=== PATIENT | female | born 1945 | race Caucasian/White ===

== ENCOUNTER 2017-09-27 10:11 | Emergency (ER) | payer OTHER, SELFPAY ==
[2017-09-27] VITALS (11 sets, daily range): BP systolic 115–134; BP diastolic 60–71; PULSE 56–71; RESP 11–18; TEMP 36.4–36.6; O2SAT 95–100
--- NOTE | 2017-09-27 11:00 | DI.RAD.S_ITS ---
PROCEDURE: XR CHEST 1V INDICATIONS: 72 year-old female with chest pain. TECHNIQUE: One view of the chest was acquired. COMPARISON: [facility], , CHEST 2 VIEW, 11/18/2009, 11:47. FINDINGS: Surgical changes and devices: None. Lungs and pleura: No pleural effusions or pneumothorax. Lungs are clear. Mediastinum: Mediastinal contours appear normal. Heart size is normal. There is aortic atherosclerosis. Bones and chest wall: No suspicious bony lesions. Overlying soft tissues appear unremarkable. IMPRESSION: No acute cardiopulmonary disease. Dictated by: Jackson Frederick M.D. on 09/27/2017 at 11:19 Approved by: Jackson Frederick M.D. on 09/27/2017 at 11:19
--- NOTE | 2017-09-27 11:23 | DI.CT.S_ITS ---
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 TECHNIQUE: Noncontrast 4.5 mm thick angled axial sections acquired from the foramen magnum to the vertex, with coronal and sagittal reformats. For radiation dose reduction, the following was used: automated exposure control, adjustment of mA and/or kV according to patient size. COMPARISON: [facility], MR, MR BRAIN W&WO CON, 12/27/2014, 20:14. FINDINGS: Image quality: Excellent. CSF spaces: Basal cisterns are patent. No extra-axial fluid collections. The ventricles are symmetric in size and shape. Brain: No intracranial bleeds or masses. There are patchy periventricular and deep white matter chronic small vessel ischemic changes. There is intracranial internal carotid artery atherosclerosis. Skull and face: Calvarium and visualized facial bones appear intact, status post surgical resection of portions of the lateral left orbital wall. There is right paramedian occipital scalp soft tissue swelling. Sinuses: Visualized sinuses and mastoids are clear. IMPRESSION: 1. No acute intracranial abnormalities after fall. Posterior right paramedian occipital scalp soft tissue swelling. 2. Mild periventricular and deep white matter chronic small vessel ischemic change. Dictated by: Jackson Frederick M.D. on 09/27/2017 at 12:04 Approved by: Jackson Frederick M.D. on 09/27/2017 at 12:10
[2017-09-27 11:26] LABS: HEMOLYSIS < 15 (0-50)
[2017-09-27 11:28] LABS: Add Manual Diff / Slide Review NO; Basophils Percent Auto 0.7 % (0-2); Eosinophils Percent Auto 2.2 % (2-4); Hematocrit 41.5 % (36-46); Hemoglobin 14.1 g/dL (12.0-16.0); INR 1.1 (0.9-1.3); Lymphocytes Percent Auto 15.6 % (25-40); Mean Corpuscular HGB Conc 34.1 % (30-36); Mean Corpuscular Hemoglobin 30.3 PG (26-34); Mean Corpuscular Volume 88.9 fL (80-100); Monocytes Percent Auto 10.2 % (3-14); Neutrophils Absolute Auto 4200 /uL (3000-5900); Neutrophils Percent Auto 71.3 % (50-75); Platelet Count 125 X10^3/uL (150-400); Prothrombin Time 12.1 SECONDS (10.1-12.7); Red Blood Cell Count 4.67 X10^6/uL (4.0-5.2); Red Cell Distribution Width 13.5 % (11.6-14.8); White Blood Cell Count 5.8 X10^3/uL (4.5-11.0)
[2017-09-27 11:30] LABS: PTT Partial Thromboplastin Tim 28 SECONDS (26.4-36.2)
[2017-09-27 11:32] LABS: Alanine Aminotransferase 19 IU/L (9-52); Albumin 4.3 g/dL (3.5-5.0); Albumin Globulin Ratio 1.5 (1.0-2.8); Alkaline Phosphatase 56 U/L (38-126); Aspartate Aminotransferase 23 IU/L (14-36); BUN Creatinine Ratio 22.2 (6-22); Bilirubin Total 0.6 mg/dL (0.2-1.3); Calcium 9.6 mg/dL (8.4-10.2); Creatine Kinase 30 U/L (30-135); Estimated Glomerular Filt Rate > 60.0 mL/min (>60); Globulin 2.9 g/dL (1.7-4.1); Glucose 104 mg/dL (80-110); Lipase 209 U/L (23-300); Potassium 3.6 mmol/L (3.4-5.1); Sodium 141 mmol/L (137-145); Total Protein 7.2 g/dL (6.3-8.2)
[2017-09-27 11:46] LABS: Troponin I < 0.012 ng/mL (0.01-0.034)
--- NOTE | 2017-09-27 13:21 | DI.CT.S_ITS ---
PROCEDURE: CT CERVICAL SPINE WO CON INDICATIONS: fall w/ neck pain TECHNIQUE: Noncontrast 3 mm thick sections acquired from the skull base to the T4 level. Sagittal and coronal reformats were then constructed. For radiation dose reduction, the following was used: automated exposure control, adjustment of mA and/or kV according to patient size. COMPARISON: None. FINDINGS: Image quality: Excellent. Bones: No fractures or dislocations. Visualized superior ribs are intact. Multilevel endplate osteophytes are present indicating degenerative disease. Mild grade 1 anterolisthesis of C2 on C3 and C3 and C4. Mild grade 1 retrolisthesis of C4 on C5. Soft tissues: Prevertebral soft tissues are normal in thickness. No paravertebral hematomas. No apical pneumothoraces. IMPRESSION: 1. No fracture. 2. Multilevel degenerative disc and facet disease, with multilevel presumably degenerative spondylolistheses. Dictated by: Hermes Mccarthy M.D. on 09/27/2017 at 13:43 Approved by: Hermes Mccarthy M.D. on 09/27/2017 at 13:45
--- NOTE | 2017-09-27 14:57 | ED.SYNCOPE ---
HPI - Syncope General Chief Complaint: Syncope Stated Complaint: cut on back of head History of Present Illness HPI narrative: HPI 72-year-old female presents for evaluation of injuries after a syncopal event while the patient was in her kitchen. Patient reports that she suddenly felt weak, had no accompany chest pain, shortness breath, abdominal pain, she then fell to the floor striking the back of her head on the counter. Patient remembers falling striking her head, she had a brief LOC and immediately regained consciousness without incontinence or confusion. The patient reports that she has had to similar prior episodes over the last year. Both episodes were sudden, resulting in rapidly progressive loss of consciousness, generalized weakness, a fall with ongoing but meaning memory as she fell, and a near immediate return of consciousness. On her of and she had accompanied incontinence of urine and stool. This event was in the shower. The patient reports that she has had a unremarkable Echo, and has worn a Holter for 24 hours without event. Patient has a primary care physician. * Denies chest pain, shortness of breath, double vision, neck pain, vertigo, headache, arm pain, arm paresthesias, arm numbness, or focal weakness or sensory at change now or the time of their event *Denies recent chiropractic manipulation of their neck, neck trauma or strains *Denies a history of seizures. No incontinence today, denies post-syncope confusion M/S/F/SocHx notable for:please see HP; remainder reviewed with patient and in chart. ROS: Negative constitutional, eye, cardiovascular, pulmonary, GI, , MSK, skin, neurologic, psychiatric, endocrine unless noted in the HPI. Exam Gen:Pleasant, non-toxic appearing, resting comfortably HEENT: right posterior occipital 1 cm area of abrasion, otherwise NC, AT, PEERL, EOMI. Resp:Clear to auscultation bilaterally with a normal work of breathing and no accessory muscle usage Card:Regular rate and rhythm with no murmurs rubs or gallops, extremities are warm and well perfused, no JVD GI:Nontender to palpation throughout all quadrants, nondistende : Deferred MSK: No visible deformities, strength and tone WNL. C-spine with mild tenderness palpation, T and L spine without tears palpation, remainder of appendicular skeleton with full functional range of motion, no visual abnormalities appreciate, nontender to palpation, chest wall without tenderness to palpation, abdomen nontender to palpation. Skin: Normal color with no visible lesions. Neuro: Gen AO x 3, no facial asymmetry, no gaze preference, no slurring of speech. Pupils equal and reactive, EOMI, no facial asymmetry, no nystagmus, phonation intact, SCM 5/5 bilaterally. Cerebellar: bilateral upper extremities without dysmetria. Psych: Mood and affect appropriate. Labs / Imaging (pertinent): CT C-spine: no acute traumatic abnormalities. CT head: no acute endocrine abnormalities. CXR:No acute cardiopulmonary disease proces. EKG: SR at 58 BPM . LAFB with RBBB. OH interval 164 msec, QTc 438 msec, no delta waves, epsilon waves, coved or saddle ST-segment changes in leads V1-3, preseptal or inferior lead Q-waves, biphasic P-waves, or T-wave inversions; no LVH. MDM Previous chart, nursing note, and vitals reviewed. A: 72-year-old female presents for evaluation of injuries after a syncopal event while the patient was in her kitchen. Patient reports that she suddenly felt weak, had no accompany chest pain, shortness breath, abdominal pain, she then fell to the floor striking the back of her head on the counter. DDx and evaluation: * trauma - no clinically significant traumatic abnormalities appreciated history or exam. * Anemia -Hemoglobin clinically within normal limits * CARDIAC - suspect cardiac based upon the patient's history. The possibility of intermittent arrhythmia seems most likely. Hospitalization versus outpatient workup was discussed with the patient. As the patient has very infrequent episodes, previously had a Holter, in no significant abnormality is noted on cardiac monitoring line ED, had a reportedly recent and unremarkable Echo, and as is her preference, she is appropriate for further outpatient workup. Her right bundle branch block with a left anterior fascicular block raises the possibility that she has an intermittent complete heart block. Discussed concerns with the bottle capper on-call for the patient, she will be scheduled for 30 day event monitor. * Obstructive -Doubt PE, tamponade, or pulmonary hypertension based upon lack of shortness of breath, chest pain, or historical risk factors on history and the absence of hypoxemia, tachycardia, hypotension, or JVD on exam * Vascular -As there are no identifiable risk factors on history (injury risk factors, vertiginous symptoms, diplopia, vision changes, TIA risk factors or prior similar events) further evaluation of a possible vertebrobasilar insufficiency. Furthermore, as the patient denies neck pain, recent neck trauma, and there is no evidence of a partial Molly's syndrome, a carotid or vertebral dissection is felt to be unlikely and imaging is not indicated. Similarly, the absence of focal arm symptoms and symmetric perfusion of the upper extremities effectively excludes emergent evaluation of any possible subclavian steal syndrome. Lastly, given the absence of chest pain aortic dissection further evaluation of any possible dissection is not warranted * Electrolyte -Electrolytes clinically within normal limit. * Hypotension (hypovolemia vs vasovagal vs autonomic instability) -SBP clinically within normal limits, no symptomatic changes with orthostatic maneuvers * GARMENT LOOPER (CVA/TIA/Mass) - given the absence of headache, absence of reported transient symptoms c/w a TIA and the absence of a focal neurological deficit, further evaluation, including imaging is not currently warranted. * Seizure - given the absence of reported seizure history and a presentation today atypical for a seizure strongly doubt that this was the cause of the patient's event * AAA - patient without any abdominal, groin, back or flank pain on history or exam, as such no further evaluation of this possible etiology is currently indicated Impression: syncope. (please reference below for remainder of encounter information) Related Data Home Medications Medication Instructions Recorded Confirmed Benadryl Allergy 1 tab PO PRN PRN 09/27/17 09/27/17 Caltrate 600 + D 1 tab PO QDAY 09/27/17 09/27/17 Probiotic 1 cap PO QDAY 09/27/17 09/27/[address] [place]'s wort 1 tab PO QDAY 09/27/17 09/27/17 Vitamin B-12 1 tab PO QDAY 09/27/17 09/27/17 Vitamin C 1 tab PO QPM 09/27/17 09/27/17 alprazolam 0.25 mg PO PRN PRN 09/27/17 09/27/17 tljolaay-ywvuzarh-dpp citrate 1 tab PO PRN PRN 09/27/17 09/27/17 [Nauzene] estradiol 0.5 mg PO MOWEFR 09/27/17 09/27/17 simvastatin [Zocor] 10 mg PO QHS 09/27/17 09/27/17 Previous Rx's Medication Instructions Recorded hydrochlorothiazide 25 mg PO QDAY #30 tab 04/26/17 Allergies Allergy/AdvReac Type Severity Reaction Status Date / Time cephalexin Allergy Intermediate HIVES Unverified 08/30/17 12:06 Sulfa (Sulfonamide Allergy Intermediate HIVES Unverified 08/30/17 12:06 Antibiotics) [SULFA (SULFONAMIDE ANTIBIOTICS)] PFSH Surgical History History of tonsillectomy Status post hysterectomy Family History Father Mental health problem MDM - Syncope Lab Data Result diagrams: 09/27/17 11:15 09/27/17 11:15 Lab Results 09/27/17 09/27/17 09/27/17 Range/Units 11:15 11:15 11:15 WBC 5.8 (4.5-11.0) X10^3/uL RBC 4.67 (4.0-5.2) X10^6/uL Hgb 14.1 (12.0-16.0) g/dL Hct 41.5 (36-46) % MCV 88.9 (80-100) fL MCH 30.3 (26-34) PG MCHC 34.1 (30-36) % RDW 13.5 (11.6-14.8) % Plt Count 125 L (150-400) X10^3/uL Neut % (Auto) 71.3 (50-75) % Lymph % (Auto) 15.6 L (25-40) % [place] % (Auto) 10.2 (3-14) % Eos % (Auto) 2.2 (2-4) % Baso % (Auto) 0.7 (0-2) % Neut # (Auto) 4200 (2033-0179) /uL PT 12.1 (10.1-12.7) SECONDS INR 1.1 (0.9-1.3) APTT 28 (26.4-36.2) SECONDS Sodium 141 (137-145) mmol/L Potassium 3.6 (3.4-5.1) mmol/L Chloride 100.0 (98-107) mmol/L Carbon Dioxide 27.0 (22-32) mmol/L BUN 20.0 H (7-17) mg/dL Creatinine 0.90 (0.52-1.04) mg/dL Estimated GFR > 60.0 (>60) mL/min BUN/Creatinine Ratio 22.2 H (6-22) Glucose 104 (80-110) mg/dL Calcium 9.6 (8.4-10.2) mg/dL Total Bilirubin 0.6 (0.2-1.3) mg/dL AST 23 (14-36) IU/L ALT 19 (9-52) IU/L Alkaline Phosphatase 56 (38-126) U/L Total Creatine Kinase 30 (30-135) U/L Troponin I < 0.012 (0.01-0.034) ng/mL Total Protein 7.2 (6.3-8.2) g/dL Albumin 4.3 (3.5-5.0) g/dL Globulin 2.9 (1.7-4.1) g/dL Albumin/Globulin Ratio 1.5 (1.0-2.8) Lipase 209 (23-300) U/L Discharge Plan Departure Prescriptions: No Action hydrochlorothiazide 25 MG tablet 25 mg PO QDAY Qty: 30 RF: 2 weghksdu-azpwlofr-kqx citrate [Nauzene] [id number] mg Tablet,Chewable 1 tab PO PRN PRN (Reason: Nausea) RF: 0 Caltrate 600 + D 1 tab PO QDAY RF: 0 Probiotic capsule 1 cap PO QDAY RF: [address] [place]'s wort tablet 1 tab PO QDAY RF: 0 Benadryl Allergy 1 tab PO PRN PRN (Reason: Allergy Symptoms) RF: 0 Vitamin B-12 1 tab PO QDAY RF: 0 Vitamin C 1 tab PO QPM RF: 0 simvastatin [Zocor] 10 MG tablet 10 mg PO QHS RF: 0 alprazolam 0.5 MG tablet 0.25 mg PO PRN PRN (Reason: claustrophobia/flying) RF: 0 estradiol 0.5 MG tablet 0.5 mg PO MOWEFR RF: 0
== END 2017-09-27 15:40 | disposition home or self-care (01) ==
PROVIDERS: Emergency Provider Emergency Medicine; PCP Family Medicine
DX: R55 Syncope and collapse (principal)
CPT/HCPCS: 36591; 70450; 71045; 72125; 80053; 82550; 82553; 83690; 84484; 85025; 85610; 85730; 93005; 99285

== ENCOUNTER → 2017-11-15 11:48 | Outpatient (CLI) | payer OTHER, SELFPAY ==
--- NOTE | 2017-11-15 | DI.MRI.S_ITS ---
PROCEDURE: MR LUMBAR SPINE WO CON INDICATIONS: LOW BACK PAIN TECHNIQUE: Noncontrast sagittal T1 spin echo and T2 fast echo, sagittal STIR, axial T1 and T2 fast spin echo through the lumbar spine. In cases with scoliosis, additional coronal T2 fast spin echo may be performed. COMPARISON: None. FINDINGS: Image quality: Excellent. Alignment and Curvature: Grade 1 retrolisthesis of L2 on L3. Bone Marrow: Marrow is of normal overall signal. No acute vertebral body compression fractures. Spinal Cord: Conus medullaris terminates at the L1-L2 level. Visualized cord demonstrates normal signal and size. Paraspinous Soft Tissues: No paravertebral masses. Dependent subcutaneous edema from the level of L2-sacrum. L1-L2: Mild broad-based posterior disc bulge and bilateral facet disease. Mild canal narrowing. No foraminal stenosis. L2-L3: Posterior annular fissure and broad-based posterior disc bulge or bilateral facet arthropathy. Mild canal narrowing. No left foraminal stenosis. Mild right foraminal narrowing. L3-L4: Broad-based posterior disc bulge and bilateral facet arthropathy with moderate canal narrowing. There is also dorsal epidural lipomatosis which contributes. Mild bilateral foraminal narrowing. L4-L5: Broad-based posterior disc bulge and bilateral facet arthropathy. Mild canal narrowing. Severe left foraminal stenosis. Mild right foraminal narrowing L5-S1: Broad-based posterior disc bulge and bilateral facet arthropathy. Mild canal narrowing. Mild left and severe right foraminal stenosis. IMPRESSION: Moderate L3-L4 canal stenosis in part due to dorsal epidural lipomatosis. Severe left L4-L5 foraminal narrowing. Severe right L5-S1 foraminal stenosis. Grade 1 retrolisthesis of L2 on L3. Dictated by: Stone Cisneros M.D. on 11/15/2017 at 14:31 Approved by: Stone Cisneros M.D. on 11/15/2017 at 14:51
== END ==
PROVIDERS: PCP Family Medicine; Visit Provider Nurse Practitioner Family
DX: M54.5 Low back pain (principal); M48.061 Spinal stenosis, lumbar region without neurogenic claudication
CPT/HCPCS: 72148

== ENCOUNTER → 2018-02-15 12:27 | Outpatient (CLI) | payer OTHER, SELFPAY | PROVIDERS: PCP Family Medicine; Visit Provider Physician Assistant | DX: N30.91 Cystitis, unspecified with hematuria (principal) | CPT/HCPCS: 87077; 87086; 87186 ==

== ENCOUNTER → 2018-08-02 14:55 | Outpatient (CLI) | payer OTHER, SELFPAY ==
--- NOTE | 2018-08-02 | DI.MG.S_ITS ---
BILATERAL DIGITAL SCREENING MAMMOGRAM 3D/2D WITH CAD: 08/02/2018 CLINICAL: Routine screening. Comparison is made to exams dated: 09/15/2015 mammogram, 05/24/2013 mammogram, and 11/18/2011 mammogram - [facility]. The tissue of both breasts is heterogeneously dense. This may lower the sensitivity of mammography. Current study was also evaluated with a Computer Aided Detection (CAD) system. There are benign calcifications in both breasts. No significant masses, calcifications, or other findings are seen in either breast. There has been no significant interval change. IMPRESSION: There is no mammographic evidence of malignancy. A 1 year screening mammogram is recommended. This exam was interpreted at Station ID: [id number]. NOTE: For mammograms, a report in lay terms will be sent to the patient. Approximately 15% of breast malignancies will not be visualized mammographically. In the management of a palpable breast mass, a negative mammogram must not discourage biopsy of a clinically suspicious lesion. Electronically Signed By: Dada mehta/marcus:08/02/2018 16:48:25 letter sent: Normal Exam ACR BI-RADS Category 2: Benign Finding(s) [id number]
== END ==
PROVIDERS: PCP Family Medicine; Visit Provider Family Medicine
DX: Z12.31 Encounter for screening mammogram for malignant neoplasm of breast (principal)
CPT/HCPCS: 77063; 77067

== ENCOUNTER 2018-09-21 15:29 | Emergency (ER) | payer OTHER, SELFPAY ==
[2018-09-21 16:09] VITALS: BP 135/80; PULSE 60; RESP 20; TEMP 36.8; O2SAT 100; BMI 31.8
--- NOTE | 2018-09-21 16:24 | DI.RAD.S_ITS ---
PROCEDURE: XR KNEE RT 3V INDICATIONS: fall on right knee TECHNIQUE: 3 views of the knee were acquired. COMPARISON: None. FINDINGS: Bones: No fractures or dislocations. No suspicious bony lesions. Soft tissues: Moderate knee joint effusion. No suspicious soft tissue calcifications. IMPRESSION: 1. No joint effusion. 2. No acute fracture. No osseous lesion. If symptoms and/or clinical suspicion for pathology persist, further assessment with repeat, or advanced imaging (e.g., CT, MRI, or bone scan) may be helpful for further assessment. Dictated by: Hermes Mccarthy M.D. on 09/21/2018 at 16:45 Approved by: Hermes Mccarthy M.D. on 09/21/2018 at 16:46
[2018-09-21 18:25] VITALS: BP 150/68; PULSE 60; RESP 16; O2SAT 99
--- NOTE | 2018-09-21 18:28 | PC.NURSE ---
Pt reports having had pain in right knee previously. Had a steroid injection in knee about 6 months ago and reports had pain relief until yesterday. Was moving into new home yesterday when pain started. Increased in intensity through out the evening and into today. Took a dose of oxycodone and reports relief with medication.
[2018-09-21 19:35] VITALS: BP 144/67; PULSE 61; RESP 16; O2SAT 97
--- NOTE | 2018-09-21 19:53 | ED.EXTPRO ---
HPI - Extremity Problem <Kelsi Marques, [employer]-[facility] - Last Filed: 09/21/18 20:00> General Chief complaint: Extremity Problem,Nontraumatic Stated complaint: RIGHT KNEE HURTS BAD Time Seen by Provider: 09/21/18 18:38 Source: patient and family Mode of arrival: ambulatory Limitations: no limitations History of Present Illness HPI Narrative: The patient is a 73-year-old female nonsmoker who presents with chief complaint of knee pain. she states she has a history of right knee pain, which was treated with a steroid injection 6 months ago. She went to Dr Albright's office earlier today, hoping that she could get another steroid injection today for her knee pain. However she could not as the office was closed so she came to the emergency department. She states she has been ambulating more than usual. She denies any fall or injury to her right knee. She has been taking her 's oxycodone for her knee pain. she presents requesting a steroid injection and states that she took oxycodone in order to make a steroid injection easier. She denies any numbness or tingling. She thought she had some bruising, but states that is gone. Related Data Home Medications Medication Instructions Recorded Confirmed Benadryl Allergy 1 tab PO PRN PRN 09/27/17 02/20/18 Caltrate 600 + D 1 tab PO QDAY 09/27/17 02/20/18 Probiotic 1 cap PO QDAY 09/27/17 02/20/18 [place]'s wort 1 tab PO QDAY 09/27/17 02/20/18 Vitamin B-12 1 tab PO QDAY 09/27/17 02/20/18 Vitamin C 1 tab PO QPM 09/27/17 02/20/18 jrcvkslc-jntnonic-qqe citrate 1 tab PO PRN PRN 09/27/17 02/20/18 [Nauzene] ibuprofen 200 mg capsule 200 mg PO ONCE PRN cap 11/03/17 02/20/18 ibuprofen 200 mg-diphenhydramine 1 cap PO BEDTIME PRN 11/03/17 02/20/18 HCl 25 mg capsule Previous Rx's Medication Instructions Recorded estradiol 0.5 mg tablet 0.5 mg PO MOWEFR #30 tab 03/23/18 irbesartan 150 mg tablet 150 mg PO .QHS #90 tab 04/24/18 alprazolam 0.5 mg tablet 0.25 mg PO PRN PRN #5 tab 06/28/18 simvastatin 10 mg tablet 10 mg PO QHS #30 tab 06/28/18 diclofenac sodium [Voltaren] 2 gram TOP QID PRN #100 gram 09/21/18 lidocaine 1 patch TOP DAILY #15 each 09/21/18 Allergies Allergy/AdvReac Type Severity Reaction Status Date / Time cephalexin Allergy Intermediate HIVES Verified 09/21/18 16:23 Sulfa (Sulfonamide Allergy Intermediate HIVES Verified 09/21/18 16:23 Antibiotics) [SULFA (SULFONAMIDE ANTIBIOTICS)] Review of Systems <KYLE Thompson - Last Filed: 09/21/18 20:00> Review of Systems GENERAL: Denies chills, fatigue, malaise, fever, sweats. HEENT: Denies sinus pain, ear pain, sore throat, difficulty swallowing, dizziness. RESPIRATORY: Denies dyspnea, cough, wheezing, hemoptysis, sputum. CARDIOVASCULAR: Denies chest pain, palpitations, orthopnea, edema, GASTROINTESTINAL: Denies nausea, vomiting, abdominal pain, diarrhea, constipation, melena. : Denies dysuria, frequency, incontinence, hematuria, urinary retention. MUSCULOSKELETAL: See HPI SKIN: See HPI NEUROLOGIC: Denies weakness, headache, numbness, change in speech, confusion, seizures, incoordination. PSYCHIATRIC: No concerning psychosocial issues. 12 point review of systems is negative except for those stated above PFSH <KYLE Thompson - Last Filed: 09/21/18 20:00> Medical History Lumbar spinal stenosis (Chronic) Anxiety (Chronic) Asthma (Chronic) Depression (Chronic) Eczema (Chronic) Frequent UTI (Chronic) Hayfever (Chronic) Lymphoma, head, face, or neck (Chronic 2013) Osteoporosis (Chronic) PTSD (post-traumatic stress disorder) (Chronic) Urinary incontinence (Chronic) Vertigo (Chronic) Chicken pox (Resolved) Surgical History S/P placement of cardiac pacemaker (Resolved) Anesthesia complication (Resolved) History of surgery of head (Resolved 2013) History of tonsillectomy (Resolved) Status post hysterectomy (Resolved 1990) Family History Father Mental health problem Mother Stroke Social History marital status: Smoking Status: Never smoker Family History Father Mental health problem Mother Stroke Social History marital status: Smoking Status: Never smoker Exam <KYLE Thompson - Last Filed: 09/21/18 20:00> Narrative Exam Narrative: GENERAL: Elderly female sitting on stretcher eating soup with daughter at bedside HEAD: Atraumatic. Normocephalic. No temporal or scalp tenderness. NECK: Trachea midline. No JVD or lymphadenopathy. Supple, nontender, no meningeal signs. CARDIOVASCULAR: Regular rate and rhythm RESPIRATORY: No cough. No increased respiratory effort. No accessory muscle use. EXTREMITIES: Generalized pain to palpation right knee. Negative varus valgus Heidi anterior drawer or posterior drawer. Patient is able to flex and extend right knee. Positive pedal pulse right foot BACK: Nontender without deformity or crepitance. No flank tenderness. NEURO: AOx3. SKIN: No erythema ecchymosis laceration or abrasion noted right knee. Initial Vital Signs Initial Vital Signs: Vital Signs Temperature 98.2 F 09/21/18 16:09 Pulse Rate 60 09/21/18 16:09 Respiratory Rate 20 09/21/18 16:09 Blood Pressure 135/80 09/21/18 16:09 Pulse Oximetry 100 09/21/18 16:09 <Dov Larson DO - Last Filed: 09/22/18 00:55> Initial Vital Signs Initial Vital Signs: Vital Signs Temperature 98.2 F 09/21/18 16:09 Pulse Rate 60 09/21/18 16:09 Respiratory Rate 20 09/21/18 16:09 Blood Pressure 135/80 09/21/18 16:09 Pulse Oximetry 100 09/21/18 16:09 Course <KYLE Thompson - Last Filed: 09/21/18 20:00> Orders Ordered: ED Orders 09/21/18 16:24 XR knee RT 3V Stat Vital Signs - 8 hr 09/21/18 18:25 09/21/18 19:35 Pulse Rate 60 61 Respiratory Rate 16 16 Blood Pressure [Left Arm] 150/68 H 144/67 H Pulse Oximetry 99 97 <Dov Larson DO - Last Filed: 09/22/18 00:55> Orders Ordered: ED Orders 09/21/18 16:24 XR knee RT 3V Stat Vital Signs - 8 hr 09/21/18 18:25 09/21/18 19:35 Pulse Rate 60 61 Respiratory Rate 16 16 Blood Pressure [Left Arm] 150/68 H 144/67 H Pulse Oximetry 99 97 MDM - Extremity (Nontraumatic) <KYLE Thompson - Last Filed: 09/21/18 20:00> Imaging Data Knee x-ray: Radiologist's impression: [address] [address] XRay Report Signed Patient: Joie Orourke LMR#: [id number] : 5Acct:[id number] Age/Sex: 73 / FDate of Service: 09/21/18 Loc: ED Accession Number: [id number] Procedure: XR knee RT 3V Ordering Provider: Kelsi Marques PROCEDURE: XR KNEE RT 3V INDICATIONS: fall on right knee TECHNIQUE: 3 views of the knee were acquired. COMPARISON: None. FINDINGS: Bones: No fractures or dislocations. No suspicious bony lesions. Soft tissues: Moderate knee joint effusion. No suspicious soft tissue calcifications. IMPRESSION: 1. No joint effusion. 2. No acute fracture. No osseous lesion. If symptoms and/or clinical suspicion for pathology persist, further assessment with repeat, or advanced imaging (e.g., CT, MRI, or bone scan) may be helpful for further assessment. Dictated by: Hermes Mccarthy M.D. on 09/21/2018 at 16:45 Approved by: Hermes Mccarthy M.D. on 09/21/2018 at 16:46 [facility] Narrative Medical decision making narrative: The patient is a 73-year-old female with history of knee pain who presents requesting a steroid injection for her knee. Her x-ray shows no fracture. I discussed at length that she has a follow-up with her primary care provider as we will not do a steroid injection in the emergency department for her knee pain. she has no acute findings on exam, is afebrile and hemodynamically stable. I did give her prescription of lidocaine patch as well as Voltaren topical. I discussed at length come back to emergency department for acute concerns but otherwise following up with her primary care provider regarding her knee pain. Discharge Plan Departure Patient Disposition: Home Clinical Impression: Acute knee pain Qualifiers: Laterality: right Qualified Code(s): M25.561 - Pain in right knee Clinical Impression: (Ruled Out): Cerebrovascular disease Discharge Date/Time: 09/21/18 19:40 Interventions: ED Discharge Assessment Last Done: 09/21/18 19:39 Instructions: How To Perform RICE (Rest, Ice, Compress, Elevate), DI for Knee Pain Activity Restrictions/Additional Instructions: Her x-ray shows no acute fractures today. Please use rest ice compression elevation as well as ucqk-wqy-bznfrrx pain medications as needed and able. I gave you prescriptions for lidocaine patches as well as topical gel. Please follow up with primary care doctor as we discussed. Please come back to emergency department for any acute concerns such as chest pain or shortness of breath. Prescriptions: New lidocaine 5 % adhesive patch,medicated 1 patch TOP DAILY Qty: 15 RF: 0 diclofenac sodium [Voltaren] 1 % gel 2 gram TOP QID PRN (Reason: pain) Qty: 100 RF: 0 No Action estradiol 0.5 mg tablet 0.5 mg PO MOWEFR Qty: 30 RF: 6 simvastatin [Zocor] 10 mg tablet 10 mg PO QHS Qty: 30 RF: 3 alprazolam 0.5 mg tablet 0.25 mg PO PRN PRN (Reason: claustrophobia/flying) Qty: 5 RF: 0 ibuprofen [Advil Liqui-Gel] 200 mg capsule 200 mg PO ONCE PRNRF: 0 ibuprofen-diphenhydramine HCl [Advil PM Liqui-Gels] 200-25 mg capsule 1 cap PO BEDTIME PRNRF: 0 irbesartan 150 mg tablet 150 mg PO .QHS Qty: 90 RF: 0 ifoqmjmr-sxcqsrhu-wfv citrate [Nauzene] 968-175-230 mg Tablet,Chewable 1 tab PO PRN PRN (Reason: Nausea) RF: 0 Caltrate 600 + D 1 tab PO QDAY RF: 0 Probiotic capsule 1 cap PO QDAY RF: 0 [place]'s wort tablet 1 tab PO QDAY RF: 0 Benadryl Allergy 1 tab PO PRN PRN (Reason: Allergy Symptoms) RF: 0 Vitamin B-12 1 tab PO QDAY RF: 0 Vitamin C 1 tab PO QPM RF: 0 Referrals: Angelina Szymanski DO [Primary Care Provider] - <Dov Larson DO - Last Filed: 09/22/18 00:55> Cosign ED Attending Raisaature Attestation: I was immediately available in the department for consultation. Documentation has been reviewed. I agree with assessment and plan.
--- NOTE | 2018-09-21 20:00 | ED_ITS ---
HPI - Extremity Problem <Kelsi Marques, RN [facility] - Last Filed: 09/21/18 20:00> General Chief complaint: Extremity Problem,Nontraumatic Stated complaint: RIGHT KNEE HURTS BAD Time Seen by Provider: 09/21/18 18:38 Source: patient and family Mode of arrival: ambulatory Limitations: no limitations History of Present Illness HPI Narrative: The patient is a 73-year-old female nonsmoker who presents with chief complaint of knee pain. she states she has a history of right knee pain, which was treated with a steroid injection 6 months ago. She went to Dr Albright's office earlier today, hoping that she could get another steroid injection today for her knee pain. However she could not as the office was closed so she came to the emergency department. She states she has been ambulating more than usual. She denies any fall or injury to her right knee. She has been taking her 's oxycodone for her knee pain. she presents requesting a steroid injection and states that she took oxycodone in order to make a steroid injection easier. She denies any numbness or tingling. She thought she had some bruising, but states that is gone. Related Data Home Medications Medication Instructions Recorded Confirmed Benadryl Allergy 1 tab PO PRN PRN 09/27/17 02/20/18 Caltrate 600 + D 1 tab PO QDAY 09/27/17 02/20/18 Probiotic 1 cap PO QDAY 09/27/17 02/20/18 Chen[place]'s wort 1 tab PO QDAY 09/27/17 02/20/18 Vitamin B-12 1 tab PO QDAY 09/27/17 02/20/18 Vitamin C 1 tab PO QPM 09/27/17 02/20/18 gltwtbus-bflxhfmz-ght citrate 1 tab PO PRN PRN 09/27/17 02/20/18 [Nauzene] ibuprofen 200 mg capsule 200 mg PO ONCE PRN cap 11/03/17 02/20/18 ibuprofen 200 mg-diphenhydramine 1 cap PO BEDTIME PRN 11/03/17 02/20/18 HCl 25 mg capsule Previous Rx's Medication Instructions Recorded estradiol 0.5 mg tablet 0.5 mg PO MOWEFR #30 tab 03/23/18 irbesartan 150 mg tablet 150 mg PO .QHS #90 tab 04/24/18 alprazolam 0.5 mg tablet 0.25 mg PO PRN PRN #5 tab 06/28/18 simvastatin 10 mg tablet 10 mg PO QHS #30 tab 06/28/18 diclofenac sodium [Voltaren] 2 gram TOP QID PRN #100 gram 09/21/18 lidocaine 1 patch TOP DAILY #15 each 09/21/18 Allergies Allergy/AdvReac Type Severity Reaction Status Date / Time cephalexin Allergy Intermediate HIVES Verified 09/21/18 16:23 Sulfa (Sulfonamide Allergy Intermediate HIVES Verified 09/21/18 16:23 Antibiotics) [SULFA (SULFONAMIDE ANTIBIOTICS)] Review of Systems <KYLE Thompson - Last Filed: 09/21/18 20:00> Review of Systems GENERAL: Denies chills, fatigue, malaise, fever, sweats. HEENT: Denies sinus pain, ear pain, sore throat, difficulty swallowing, dizziness. RESPIRATORY: Denies dyspnea, cough, wheezing, hemoptysis, sputum. CARDIOVASCULAR: Denies chest pain, palpitations, orthopnea, edema, GASTROINTESTINAL: Denies nausea, vomiting, abdominal pain, diarrhea, constipation, melena. : Denies dysuria, frequency, incontinence, hematuria, urinary retention. MUSCULOSKELETAL: See HPI SKIN: See HPI NEUROLOGIC: Denies weakness, headache, numbness, change in speech, confusion, seizures, incoordination. PSYCHIATRIC: No concerning psychosocial issues. 12 point review of systems is negative except for those stated above PFSH <KYLE Thompson - Last Filed: 09/21/18 20:00> Medical History Lumbar spinal stenosis (Chronic) Anxiety (Chronic) Asthma (Chronic) Depression (Chronic) Eczema (Chronic) Frequent UTI (Chronic) Hayfever (Chronic) Lymphoma, head, face, or neck (Chronic 2013) Osteoporosis (Chronic) PTSD (post-traumatic stress disorder) (Chronic) Urinary incontinence (Chronic) Vertigo (Chronic) Chicken pox (Resolved) Surgical History S/P placement of cardiac pacemaker (Resolved) Anesthesia complication (Resolved) History of surgery of head (Resolved 2013) History of tonsillectomy (Resolved) Status post hysterectomy (Resolved 1990) Family History Father Mental health problem Mother Stroke Social History marital status: Smoking Status: Never smoker Family History Father Mental health problem Mother Stroke Social History marital status: Smoking Status: Never smoker Exam <KYLE Thompson - Last Filed: 09/21/18 20:00> Narrative Exam Narrative: GENERAL: Elderly female sitting on stretcher eating soup with daughter at bedside HEAD: Atraumatic. Normocephalic. No temporal or scalp tenderness. NECK: Trachea midline. No JVD or lymphadenopathy. Supple, nontender, no meningeal signs. CARDIOVASCULAR: Regular rate and rhythm RESPIRATORY: No cough. No increased respiratory effort. No accessory muscle use. EXTREMITIES: Generalized pain to palpation right knee. Negative varus valgus Heidi anterior drawer or posterior drawer. Patient is able to flex and extend right knee. Positive pedal pulse right foot BACK: Nontender without deformity or crepitance. No flank tenderness. NEURO: AOx3. SKIN: No erythema ecchymosis laceration or abrasion noted right knee. Initial Vital Signs Initial Vital Signs: Vital Signs Temperature 98.2 F 09/21/18 16:09 Pulse Rate 60 09/21/18 16:09 Respiratory Rate 20 09/21/18 16:09 Blood Pressure 135/80 09/21/18 16:09 Pulse Oximetry 100 09/21/18 16:09 <Dov Larson DO - Last Filed: 09/22/18 00:55> Initial Vital Signs Initial Vital Signs: Vital Signs Temperature 98.2 F 09/21/18 16:09 Pulse Rate 60 09/21/18 16:09 Respiratory Rate 20 09/21/18 16:09 Blood Pressure 135/80 09/21/18 16:09 Pulse Oximetry 100 09/21/18 16:09 Course <KYLE Thompson - Last Filed: 09/21/18 20:00> Orders Ordered: ED Orders 09/21/18 16:24 XR knee RT 3V Stat Vital Signs - 8 hr 09/21/18 18:25 09/21/18 19:35 Pulse Rate 60 61 Respiratory Rate 16 16 Blood Pressure [Left Arm] 150/68 H 144/67 H Pulse Oximetry 99 97 <Dov Larson DO - Last Filed: 09/22/18 00:55> Orders Ordered: ED Orders 09/21/18 16:24 XR knee RT 3V Stat Vital Signs - 8 hr 09/21/18 18:25 09/21/18 19:35 Pulse Rate 60 61 Respiratory Rate 16 16 Blood Pressure [Left Arm] 150/68 H 144/67 H Pulse Oximetry 99 97 MDM - Extremity (Nontraumatic) <KYLE Thompson - Last Filed: 09/21/18 20:00> Imaging Data Knee x-ray: Radiologist's impression: [address] [address] XRay Report Signed Patient: Joie Orourke LMR#: [id number] : 5Acct:[id number] Age/Sex: 73 / FDate of Service: 09/21/18 Loc: ED Accession Number: [id number] Procedure: XR knee RT 3V Ordering Provider: Kelsi Marques PROCEDURE: XR KNEE RT 3V INDICATIONS: fall on right knee TECHNIQUE: 3 views of the knee were acquired. COMPARISON: None. FINDINGS: Bones: No fractures or dislocations. No suspicious bony lesions. Soft tissues: Moderate knee joint effusion. No suspicious soft tissue calcifications. IMPRESSION: 1. No joint effusion. 2. No acute fracture. No osseous lesion. If symptoms and/or clinical suspicion for pathology persist, further assessment with repeat, or advanced imaging (e.g., CT, MRI, or bone scan) may be helpful for further assessment. Dictated by: Hermes Mccarthy M.D. on 09/21/2018 at 16:45 Approved by: Hermes Mccarthy M.D. on 09/21/2018 at 16:46 [facility] Narrative Medical decision making narrative: The patient is a 73-year-old female with history of knee pain who presents requesting a steroid injection for her knee. Her x-ray shows no fracture. I discussed at length that she has a follow-up with her primary care provider as we will not do a steroid injection in the emergency department for her knee pain. she has no acute findings on exam, is afebrile and hemodynamically stable. I did give her prescription of lidocaine patch as well as Voltaren topical. I discussed at length come back to emergency department for acute concerns but otherwise following up with her primary care provider regarding her knee pain. Discharge Plan Departure Patient Disposition: Home Clinical Impression: Acute knee pain Qualifiers: Laterality: right Qualified Code(s): M25.561 - Pain in right knee Clinical Impression: (Ruled Out): Cerebrovascular disease Discharge Date/Time: 09/21/18 19:40 Interventions: ED Discharge Assessment Last Done: 09/21/18 19:39 Instructions: How To Perform RICE (Rest, Ice, Compress, Elevate), DI for Knee Pain Activity Restrictions/Additional Instructions: Her x-ray shows no acute fractures today. Please use rest ice compression elevation as well as bnsu-zdv-jgswaid pain medications as needed and able. I gave you prescriptions for lidocaine patches as well as topical gel. Please follow up with primary care doctor as we discussed. Please come back to emergency department for any acute concerns such as chest pain or shortness of breath. Prescriptions: New lidocaine 5 % adhesive patch,medicated 1 patch TOP DAILY Qty: 15 RF: 0 diclofenac sodium [Voltaren] 1 % gel 2 gram TOP QID PRN (Reason: pain) Qty: 100 RF: 0 No Action estradiol 0.5 mg tablet 0.5 mg PO MOWEFR Qty: 30 RF: 6 simvastatin [Zocor] 10 mg tablet 10 mg PO QHS Qty: 30 RF: 3 alprazolam 0.5 mg tablet 0.25 mg PO PRN PRN (Reason: claustrophobia/flying) Qty: 5 RF: 0 ibuprofen [Advil Liqui-Gel] 200 mg capsule 200 mg PO ONCE PRNRF: 0 ibuprofen-diphenhydramine HCl [Advil PM Liqui-Gels] 200-25 mg capsule 1 cap PO BEDTIME PRNRF: 0 irbesartan 150 mg tablet 150 mg PO .QHS Qty: 90 RF: 0 nxqiivfa-bekofbpm-sdd citrate [Nauzene] 968-175-230 mg Tablet,Chewable 1 tab PO PRN PRN (Reason: Nausea) RF: 0 Caltrate 600 + D 1 tab PO QDAY RF: 0 Probiotic capsule 1 cap PO QDAY RF: 0 [place]'s wort tablet 1 tab PO QDAY RF: 0 Benadryl Allergy 1 tab PO PRN PRN (Reason: Allergy Symptoms) RF: 0 Vitamin B-12 1 tab PO QDAY RF: 0 Vitamin C 1 tab PO QPM RF: 0 Referrals: Angelina Szymanski DO [Primary Care Provider] - <Dov Larson DO - Last Filed: 09/22/18 00:55> Cosign ED Attending Raisaature Attestation: I was immediately available in the department for consultation. Documentation has been reviewed. I agree with assessment and plan.
== END 2018-09-21 19:40 | disposition home or self-care (01) ==
PROVIDERS: Emergency Provider Nurse Practitioner Family; PCP Family Medicine
DX: M25.561 Pain in right knee (principal)
CPT/HCPCS: 73562; 99282; 99283

== ENCOUNTER → 2018-12-03 08:50 | Outpatient (CLI) | payer OTHER, SELFPAY ==
[2018-12-03 10:05] LABS: Cholesterol 209 mg/dL (140-199); HDL Cholesterol 47 mg/dL (40-60); LDL Cholesterol Calculated 140 mg/dL (<100); Triglycerides 109 mg/dL (35-150)
== END ==
PROVIDERS: PCP Family Medicine; Visit Provider Family Medicine
DX: E78.5 Hyperlipidemia, unspecified (principal)
CPT/HCPCS: 36415; 80061